=== PATIENT | female | born 1965 | race Caucasian/White ===

== ENCOUNTER 2018-01-16 22:29 | Emergency (ER) | payer OTHER ==
[~2018-01-16] VITALS: Ht 152.4 cm; Wt 72.6 kg
--- NOTE | 2018-01-16 22:43 | NUR ---
Pt BIBRA C/O LT LOWER QUAD ABDL PAIN X1HR. Pt STATES SHE HAS BEEN HAVING NORMAL BMs TODAY, DENIES HAVING ANY DIARRHEA. VS STABLE. BP 118/76, HR 65, R 18, O2 99%, T 97.6F. Pt GOWNED, WAITING IN ROOM, WAITING TO BE SEEN BY MD.
--- NOTE | 2018-01-16 22:45 | NUR ---
Pt TAKEN DOWN FOR CT
[2018-01-16 23:20] LABS: BASOPHILS # (AUTO) 0.1 /CMM (0.0-0.2); BASOPHILS % (AUTO) 0.6 % (0.0-2.0); HEMATOCRIT 41 % (33-45); HEMOGLOBIN 13.5 g/dL (11.5-14.8); LYMPHOCYTES # (AUTO) 1.1 /CMM (0.8-4.8); LYMPHOCYTES % (AUTO) 12.8 % (20.0-44.0); MEAN CORPUSCULAR HGB CONC 33 g/dl (31.0-36.0); MEAN CORPUSCULAR VOLUME 84 fL (82-100); MONOCYTES # (AUTO) 0.3 /CMM (0.1-1.30); MONOCYTES % (AUTO) 3.7 % (2.0-12.0); NEUTROPHILS # (AUTO) 7.1 /CMM (1.8-8.9); NEUTROPHILS % (AUTO) 81.9 % (43.0-81.0); PLATELET COUNT (AUTO) 190 /CMM (150-450); RED BLOOD CELL COUNT(AUTO) 4.91 MIL/uL (4.0-5.2); WHITE BLOOD COUNT (AUTO) 8.7 K/uL (4.3-11.0)
--- NOTE | 2018-01-16 23:28 | NUR ---
Pt HAD A BM X1 DIARRHEA. PER Pt FEELS SIGNIFICANTLY BETTER. IS ABLE TO MOVE COMPARED TO BEFORE. Pt IS REFUSING IV INSERTION. WISHES INSTEAD TO GET EITHER AN IM INJECTION OR PO PAIN MED. INFORMED MD OF Pt's WISHES.
[2018-01-16 23:30] LABS: CALCIUM, SERUM 9.1 mg/dL (8.5-10.1); CREATININE 1.1 mg/dL (0.6-1.3)
[2018-01-16] MEDS ORDERED: KETOROLAC TROMETHAMINE INJ 30 MG/ML VIAL IV ONE (23:30)
[2018-01-16 23:36] LABS: ALBUMIN 3.6 g/dL (3.4-5.0); BILIRUBIN,DIRECT 0.1 mg/dL (0.0-0.2); BILIRUBIN,TOTAL 0.2 mg/dL (0.2-1.0); TOTAL PROTEIN, SERUM 6.9 g/dL (6.4-8.2)
[2018-01-17] MEDS ORDERED: KETOROLAC TROMETHAMINE INJ 30 MG/ML VIAL ONE (00:05)
--- NOTE | 2018-01-17 00:11 | NUR ---
Pt REFUSING IV INSERTION. GAVE TORADOL 30MG IM INJ ON RT ARM.
--- NOTE | 2018-01-17 00:12 | NUR ---
Pt HAD ANOTHER DIARRHEA. SAID PAIN COMES & GOES. BUT IS COMING BACK AGAIN. Addendum: 01/17/18 at 0012 by ALESSIO Pt DENIES HAVING ANY N&V
[2018-01-17] MEDS ORDERED: KETOROLAC TROMETHAMINE INJ 60 MG/2 ML VIAL IM ONE (00:30)
[2018-01-17 02:09] LABS: APPEARANCE,URINE CLEAR (CLEAR); BILIRUBIN,URINE 1+ (NEGATIVE); BLOOD, URINE NEGATIVE Ery/uL (NEGATIVE); KETONES,URINE TRACE (NEGATIVE); LEUKOCYTE ESTERASE ,URINE TRACE (NEGATIVE); NITRITE, URINE NEGATIVE (NEGATIVE); PH,URINE 5.5 (5.0-8.0); PROTEIN,URINE NEGATIVE (NEGATIVE); UGLUCOSE NEGATIVE (NEGATIVE); UROBILINOGEN,URINE 0.2 EU/dL (0.2)
[2018-01-17 02:15] LABS: COLOR,URINE DARK YELLOW (YELLOW)
[2018-01-17 02:17] LABS: BACTERIA,URINE Few /HPF (None Seen); RBC,URINE 0-2 /HPF (0-2); SQUAMOUS EPITHELIAL CELL,UR Moderate /HPF (None Seen)
[2018-01-17 02:18] LABS: MUCUS,URINE Many /LPF (None Seen)
[2018-01-17 02:56] VITALS: BP 118/76
--- NOTE | 2018-01-17 02:58 | NUR ---
Patient discharged to home in stable condition. Written and verbal after care instructions given. Patient verbalizes understanding of instruction. picking pt up. pt is waiting in lobby for ct scan imaging.
== END 2018-01-17 02:46 | disposition home or self-care (01) ==
LOC: ER 22:31
DX: K52.9 Noninfective gastroenteritis and colitis, unspecified (principal); R91.1 Solitary pulmonary nodule; N23 Unspecified renal colic; K21.9 Gastro-esophageal reflux disease without esophagitis; E78.5 Hyperlipidemia, unspecified; M79.7 Fibromyalgia; M19.90 Unspecified osteoarthritis, unspecified site; Z88.1 Allergy status to other antibiotic agents
CPT/HCPCS: 36415; 80048-TC; 80076-TC; 81000-TC; 83690-TC; 85025-TC; 87086-TC; A4606; J1885; Z7610